=== PATIENT | female | born 1975 | race Caucasian/White ===

== ENCOUNTER 2024-06-25 09:44 | Emergency (ER) | payer OTHER ==
[2024-06-25 09:49] VITALS: RESP 18
--- NOTE | 2024-06-25 10:25 | ED ---
Lower Extremity Injury HPI - General Chief Complaint: Extremity Injury, Lower Stated Complaint: L knee pain/post op Time Seen by Provider: 06/25/24 10:23 Source: patient, RN notes reviewed Mode of arrival: ambulatory Limitations: no limitations - History of Present Illness Initial Comments: 49-year-old female presented to ER with a chief complaint of left knee pain. Patient states she underwent ankle surgery in February of this year by Dr. Bernard. She states last night while sitting down on the toilet she felt a pop in her left knee. She has been endorsing posterior knee pain to this. Patient states it is difficult to ambulate due to the pain. She denies any radiation of pain or paresthesias. She has been taking [id number]-[id number] ibuprofen and Tylenol for pain control. Patient is concerned she may have a "cyst". She denies any other injuries or complaints at this time. - Related Data Home Medications Medication Instructions Recorded Confirmed ALPRAZolam [Xanax] 1 mg PO DAILY PRN 05/10/16 08/15/16 Citalopram Hydrobromide [CeleXA] 20 mg PO DAILY 05/10/16 08/15/16 Cyclobenzaprine [Flexeril] 10 mg PO TID 05/10/16 08/15/16 Gabapentin [Neurontin] 300 mg PO TID 05/10/16 08/15/16 HYDROcodone/APAP 7.5-325MG [[place] 1 tab PO Q4H PRN 05/10/16 08/15/16 7.5-325] Levothyroxine Sodium [Synthroid] 175 mcg PO DAILY 05/10/16 08/15/16 Allergies Allergy/AdvReac Type Severity Reaction Status Date / Time Penicillins AdvReac Rash/Hives Verified 08/15/16 12:48 Sulfa (Sulfonamide AdvReac Rash/Hives Verified 08/15/16 12:48 Antibiotics) Review of Systems ROS Statement: Those systems with pertinent positive or pertinent negative responses have been documented in the HPI. ROS Other: All systems not noted in ROS Statement are negative. Past Medical History Past Medical History: Fibromyalgia, Musculoskeletal Disorder, Osteoarthritis (OA) Additional Past Medical History / Comment(s): Scoliosis,Neuropathy History of Any Multi-Drug Resistant Organisms: MRSA Date of last positivie culture/infection: 2007 MDRO Source:: face Past Surgical History: Appendectomy, Back Surgery, Cholecystectomy, Orthopedic Surgery, Tubal Ligation Additional Past Surgical History / Comment(s): [facility]IN [facility], left leg surgery 03/09/24 Past Anesthesia/Blood Transfusion Reactions: No Reported Reaction Smoking Status: Former smoker, Never smoker Past Alcohol Use History: Rare Past Drug Use History: Marijuana - Past Family History Mother Family Medical History: Cancer General Exam Limitations: no limitations General appearance: alert, in no apparent distress Respiratory exam: Present: normal lung sounds bilaterally. Absent: respiratory distress, wheezes, rales, rhonchi, stridor Cardiovascular Exam: Present: regular rate, normal rhythm, normal heart sounds. Absent: systolic murmur, diastolic murmur, rubs, gallop, clicks Extremities exam: Present: normal inspection, tenderness (Left popliteal fossa), normal capillary refill, other (2+ left DP pulse. Healed surgical incision overlying medial malleolus. There is tenderness to popliteal fossa. No overlying skin changes. Patient has full range of motion. Pain worse with flexion.) Neurological exam: Present: alert, oriented X3, CN II-XII intact Skin exam: Present: warm, dry, intact, normal color. Absent: rash Course Vital Signs 06/25/24 06/25/24 09:46 12:19 Temperature 97.7 F 97.8 F Pulse Rate 84 80 Respiratory 18 18 Rate Blood Pressure 122/57 125/72 O2 Sat by Pulse 99 99 Oximetry Medical Decision Making - Medical Decision Making Was pt. sent in by a medical professional or institution (, PA, [employer] SALES CONSULTANT, urgent care, hospital, or detention...) When possible be specific @ -No Did you speak to anyone other than the patient for history (EMS, parent, family, police, friend...)? What history was obtained from this source @ -No Did you review nursing and triage notes (agree or disagree)? Why? @ -I reviewed and agree with nursing and triage notes Were old charts reviewed (outside hosp., previous admission, EMS record, old EKG, old radiological studies, urgent care reports/EKG's, detention records)? Report findings @ -No old charts were reviewed Differential Diagnosis (chest pain, altered mental status, abdominal pain women, abdominal pain men, vaginal bleeding, weakness, fever, dyspnea, syncope, headache, dizziness, GI bleed, back pain, seizure, CVA, palpatations, mental health, musculoskeletal)? @ -Differential Musculoskeletal: Muscular strain, contusion, ligament sprain, fracture, arthritis, septic arthritis, bursitis, cellulitis, muscle spasm, nerve compression, DVT, arterial occlusion, herpes zoster, electrolyte abnormality, tumor.... This is not meant to be in all inclusive list EKG interpreted by me (3pts min.). @ -None done X-rays interpreted by me (1pt min.). @ -Left knee x-ray interpreted by me negative for acute fractures or dislocations. CT interpreted by me (1pt min.). @ -None done U/S interpreted by me (1pt. min.). @ -None done What testing was considered but not performed or refused? (CT, X-rays, U/S, labs)? Why? @ -None What meds were considered but not given or refused? Why? @ -Patient refused analgesic medications. Did you discuss the management of the patient with other professionals (professionals i.e. , PA, [employer] SALES CONSULTANT, lab, RT, psych nurse, social media executive, pediatric urologist, teacher, human resources officer, window caser)? Give summary @ -No Was smoking cessation discussed for >3mins.? @ -No Was critical care preformed (if so, how long)? @ -No Were there social determinants of health that impacted care today? How? (Homelessness, low income, unemployed, alcoholism, drug addiction, transportation, low edu. Level, literacy, decrease access to med. care, intermediate, rehab)? @ -No Was there de-escalation of care discussed even if they declined (Discuss DNR or withdrawal of care, Hospice)? DNR status @ -No What co-morbidities impacted this encounter? (DM, HTN, Smoking, COPD, CAD, Cancer, CVA, ARF, Chemo, Hep., AIDS, mental health diagnosis, sleep apnea, morbid obesity)? @ -None Was patient admitted / discharged? Hospital course, mention meds given and route, prescriptions, significant lab abnormalities, going to OR and other perti nent info. @ -Discharge. 49-year-old female presented to the ER with a chief complaint of left posterior knee pain. History and physical exam completed. Vitals stable. Patient in no signs acute distress nontoxic-appearing. Left lower extremity neurovascular intact. There is focal tenderness to popliteal fossa. Patient has full range of motion. She does report increase of pain with flexion. Pain with internal rotation Catarino's test. X-rays obtained negative for fractures or dislocations. Symptoms believed to be due from soft tissue/ligamentous injury. Patient refused analgesic medications. Conservative treatment options discussed. Patient will be discharged in stable condition with follow-up to PCP and orthopedics for further evaluation and treatment. Patient verbally expressed understanding agree with care plan. Case discussed with ED attending by Dr. Jamison. Undiagnosed new problem with uncertain prognosis? @ -No Drug Therapy requiring intensive monitoring for toxicity (Heparin, Nitro, Insulin, Cardizem)? @ -No Were any procedures done? @ -No Diagnosis/symptom? @ -Knee sprain Acute, or Chronic, or Acute on Chronic? @ -Acute Uncomplicated (without systemic symptoms) or Complicated (systemic symptoms)? @ -Uncomplicated Side effects of treatment? @ -No Exacerbation, Progression, or Severe Exacerbation? @ -No Poses a threat to life or bodily function? How? (Chest pain, [place], [place], pneumonia, PE, COPD, DKA, ARF, appy, cholecystitis, CVA, Diverticulitis, Homicidal, Suicidal, threat to staff... and all critical care pts) @ -No - Radiology Data Radiology results: report reviewed, image reviewed Disposition Clinical Impression: Knee sprain Disposition: HOME SELF-CARE Condition: Stable Instructions (If sedation given, give patient instructions): Knee Sprain (ED) Additional Instructions: Follow-up with orthopedics if symptoms persist. Return to the ER for any new or worsening concerns. Is patient prescribed a controlled substance at d/c from ED?: No Referrals: Joel Mitchell Jr, DO [Primary Care Provider] - 1-2 days Arjun Goetz MD [STAFF PHYSICIAN] - 1-2 days Time of Disposition: 12:07
--- NOTE | 2024-06-25 11:39 | XR ---
EXAMINATION TYPE: XR knee complete LT DATE OF EXAM: 06/25/2024 11:05 AM COMPARISON: 06/25/2024 CLINICAL INDICATION: Female, 49 years old with history of pain, pain TECHNIQUE: XR knee complete LT 3 views submitted. FINDINGS: No evidence of any acute osseous pathology, soft tissue swelling, or joint effusion is no emma. Tricompartmental osteophyte formation involving the femoral condyles, tibial plateau and patella . Mild joint space narrowing. Ossified joint body posterior to the knee versus large fabella IMPRESSION: 1. No acute osseous pathology. 2. Mild tricompartmental osteoarthritic changes. [facility], , 06/25/2024 11:37 AM
[2024-06-25 12:21] VITALS: BP 125/72; PULSE 80; TEMP 97.8
== END 2024-06-25 12:21 | disposition home or self-care (01) ==
LOC: EC 09:44
DX: S83.92XA Sprain of unspecified site of left knee, initial encounter (principal); Z87.891 Personal history of nicotine dependence; Z88.0 Allergy status to penicillin; Z88.2 Allergy status to sulfonamides; X50.0XXA Overexertion from strenuous movement or load, initial encounter
CPT/HCPCS: 99283